=== PATIENT | female | born 1980 | race Caucasian/White ===

== ENCOUNTER 2019-07-11 02:59 | Emergency (ER) | payer OTHER ==
[~2019-07-11] VITALS: Ht 154.9 cm; Wt 50.8 kg
[2019-07-11 03:09] VITALS: BP 147/85
[2019-07-11] MEDS ORDERED: HYDROCODON-ACE1 EAC8 PO (03:29)
[2019-07-11] MEDS ORDERED: CLEOCIN HCL300 MG PO (03:29)
[2019-07-11] MEDS ORDERED: KEFLEX500 M1 PO (03:29)
== END 2019-07-11 03:30 | disposition home or self-care (01) ==
LOC: M.ERS 02:59
DX: L02.31 Cutaneous abscess of buttock (principal); F17.210 Nicotine dependence, cigarettes, uncomplicated; Z88.1 Allergy status to other antibiotic agents; Z88.2 Allergy status to sulfonamides

== ENCOUNTER 2020-04-15 12:06 | Emergency (ER) | payer OTHER ==
[~2020-04-15] VITALS: Ht 154.9 cm; Wt 49.9 kg
[~2020-04-15 12:06] MED LIST: CLEOCIN HCL300 MG PO; HYDROCODON-ACE1 EAC8 PO; KEFLEX500 M1 PO
[2020-04-15] MEDS ORDERED: NORCO 5-325 TA1 EAC2 PO (13:31)
[2020-04-15] MEDS ORDERED: ZANAFLEX4 MG PO (13:31)
[2020-04-15] MEDS ORDERED: NAPROSYN500 MG PO (13:31)
[2020-04-15] MEDS ORDERED: MEDROLDOSEPACK PO (13:31)
[2020-04-15 13:55] VITALS: BP 103/52
== END 2020-04-15 13:55 | disposition home or self-care (01) ==
LOC: M.ERS 12:06
DX: S29.012A Strain of muscle and tendon of back wall of thorax, initial encounter (principal); F17.210 Nicotine dependence, cigarettes, uncomplicated; Z88.2 Allergy status to sulfonamides; Z88.1 Allergy status to other antibiotic agents; X50.9XXA Other and unspecified overexertion or strenuous movements or postures, initial encounter; Y93.89 Activity, other specified; Y92.89 Other specified places as the place of occurrence of the external cause; Y99.8 Other external cause status